=== PATIENT | male | born 1980 | race African-American/Black ===

== ENCOUNTER 2017-07-22 23:10 | Emergency (ER) | payer BC, OTHER ==
[2017-07-22] MEDS ORDERED: Penicillin V Potassium 250 MG TAB ONE (23:35)
[2017-07-22] MEDS ORDERED: Ibuprofen 200 MG TAB ONE (23:35)
== END 2017-07-22 23:41 | disposition home or self-care (01) ==
LOC: NAV ERS 23:10
DX: K04.7 Periapical abscess without sinus (principal)
CPT/HCPCS: 99283

== ENCOUNTER 2017-07-24 04:51 | Emergency (ER) | payer BC | END 2017-07-24 05:20 | disposition home or self-care (01) | LOC: NAV ERS 04:51 | DX: K02.9 Dental caries, unspecified (principal) | CPT/HCPCS: 99283 ==